=== PATIENT | female | born 1980 | race Caucasian/White ===

== ENCOUNTER 2021-06-12 15:32 | Emergency (ER) | payer SELFPAY ==
[~2021-06-12] VITALS: Ht 162.6 cm; Wt 64.4 kg
[2021-06-12 15:49] VITALS: BP 96/56
--- NOTE | 2021-06-12 15:51 | NUR ---
PT TAKEN TO ER BED 7.
--- NOTE | 2021-06-12 15:52 | NUR ---
PT AMBULATED FOR UA SAMPLE.
--- NOTE | 2021-06-12 15:54 | NUR ---
DR. MATTA AT PT BEDSIDE FOR FURTHER EVALUATION.
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
--- NOTE | 2021-06-12 16:11 | NUR ---
SUPERVISOR [employer] AT PT BEDSIDE.
--- NOTE | 2021-06-12 16:14 | NUR ---
[employer] MEMBER AT PT BEDSIDE.
[2021-06-12 16:25] LABS: BASOPHILS # (AUTO) 0.1 K/uL (0.00-0.22); BASOPHILS % (AUTO) 1.1 % (0.0-2.0); EOSINOPHILS # (AUTO) 0.1 K/uL (0-0.4); EOSINOPHILS % (AUTO) 2.6 % (0.0-4.0); HEMATOCRIT 37.3 % (36-48); HEMOGLOBIN 12.3 g/dL (12.0-16.0); LYMPHOCYTES # (AUTO) 2.1 K/uL (2.5-16.5); LYMPHOCYTES % (AUTO) 44.6 % (20.5-51.1); MEAN CORPUSCULAR HEMOGLOBIN 30 pg (27-31); MEAN CORPUSCULAR HGB CONC 33 g/dL (33-37); MEAN CORPUSCULAR VOLUME 92.2 fL (80-94); MONOCYTES # (AUTO) 0.2 K/uL (0.8-1.0); MONOCYTES % (AUTO) 4.6 % (1.7-9.3); NEUTROPHILS # (AUTO) 2.2 K/uL (1.8-7.7); NEUTROPHILS % (AUTO) 47.1 % (42.2-75.2); PLATELET COUNT (AUTO) 352 K/uL (140-450); RED BLOOD CELL COUNT(AUTO) 4.05 MIL/uL (4.20-5.40); RED CELL DISTRIBUTION WIDTH 13.8 % (11.6-13.7); WHITE BLOOD COUNT (AUTO) 4.7 K/uL (4.8-10.8)
[2021-06-12 16:44] LABS: ALBUMIN 3.4 g/dL (3.4-5.0); ANION GAP 14.8 (8-16); CARBON DIOXIDE 25.6 mmol/L (21-32); CREATININE 0.7 mg/dL (0.6-1.3); POTASSIUM 3.4 mmol/L (3.5-5.1); TOTAL BILIRUBIN 0.2 mg/dL (0.0-1.0)
--- NOTE | 2021-06-12 17:17 | NUR ---
PT RESTING VISIBLE EQUAL RISE AND FALL CHEST, WILL CONTINUE TO MONITOR.
--- NOTE | 2021-06-12 17:30 | NUR ---
PT ROAD TESTED, DENIES DIZZINESS, MADE AWARE.
[2021-06-12 17:44] VITALS: BP 107/63
--- NOTE | 2021-06-12 17:46 | NUR ---
Patient discharged with v/s stable. Written and verbal after care instructions given ALCOHOL INTOXICATION and explained. Patient verbalized understanding. Ambulatory with steady gait. All questions addressed prior to discharge. Advised to follow up with PMD.
== END 2021-06-12 17:44 | disposition home or self-care (01) ==
LOC: MED 15:32
DX: F10.129 Alcohol abuse with intoxication, unspecified (principal); R07.9 Chest pain, unspecified; Y90.8 Blood alcohol level of 240 mg/100 ml or more
CPT/HCPCS: 36415; 71045; 80053; 81002; 81025; 84484; 84703; 85025; 93005; 99285; G0482; 99284; Q0092

== ENCOUNTER 2022-01-11 03:08 | Emergency (ER) | payer MEDICAID ==
[~2022-01-11] VITALS: Ht 165.1 cm; Wt 68.9 kg
[2022-01-11 03:09] VITALS: BP 115/66
--- NOTE | 2022-01-11 03:16 | NUR ---
pt to bed 5
[2022-01-11 03:38] LABS: BASOPHILS # (AUTO) 0.1 K/uL (0.00-0.22); BASOPHILS % (AUTO) 1.2 % (0.0-2.0); EOSINOPHILS # (AUTO) 0.2 K/uL (0-0.4); EOSINOPHILS % (AUTO) 3.8 % (0.0-4.0); HEMATOCRIT 35.8 % (36-48); HEMOGLOBIN 12.3 g/dL (12.0-16.0); LYMPHOCYTES # (AUTO) 2.7 K/uL (2.5-16.5); LYMPHOCYTES % (AUTO) 56.3 % (20.5-51.1); MEAN CORPUSCULAR HEMOGLOBIN 31 pg (27-31); MEAN CORPUSCULAR HGB CONC 34 g/dL (33-37); MEAN CORPUSCULAR VOLUME 90.9 fL (80-94); MONOCYTES # (AUTO) 0.3 K/uL (0.8-1.0); MONOCYTES % (AUTO) 6.5 % (1.7-9.3); NEUTROPHILS # (AUTO) 1.6 K/uL (1.8-7.7); NEUTROPHILS % (AUTO) 32.2 % (42.2-75.2); PLATELET COUNT (AUTO) 329 K/uL (140-450); RED BLOOD CELL COUNT(AUTO) 3.94 MIL/uL (4.20-5.40); RED CELL DISTRIBUTION WIDTH 13.9 % (11.6-13.7); WHITE BLOOD COUNT (AUTO) 4.8 K/uL (4.8-10.8)
[2022-01-11 03:53] LABS: ALBUMIN 3.6 g/dL (3.4-5.0); ASPARTATE AMINOTRANSFERASE 21 U/L (15-37); CARBON DIOXIDE 26.7 mmol/L (21-32); CHLORIDE 104 mmol/L (98-107); CREATININE 0.6 mg/dL (0.6-1.3); GFR ARICAN-AMERICAN 142 mL/min (>90); GLUCOSE 104 mg/dL (74-106); POTASSIUM 3.7 mmol/L (3.5-5.1); SODIUM SERUM 140 mmol/L (136-145); UREA NITROGEN, BLOOD 6 mg/dL (7-18)
[2022-01-11 03:55] LABS: SALICYLATE < 2.8 mg/dL (2.8-20.0)
[2022-01-11 03:56] LABS: ACETAMINOPHEN < 0.5 ug/ml (10-30)
--- NOTE | 2022-01-11 03:57 | NUR ---
Pt states she wants to go home. Pt states she said she wanted to kill herself because she was depressed and drunk. Pt states she is no longer suicidal and would like to go home to her boyfriend. Dr. Mars at bedside, reevaluating patient.
[2022-01-11 04:00] VITALS: BP 109/69
--- NOTE | 2022-01-11 04:15 | NUR ---
Noted pt's IV was removed w/ cannula tip intact. Pt states she removed it on her own.
[2022-01-11 04:22] LABS: BARBITURATE, URINE NEGATIVE ng/ml (NEG <=200); BENZODIAZEPINE, URINE NEGATIVE ng/mL (NEG <=200); CANNABINOID, URINE NEGATIVE ng/mL (NEG <=50); COCAINE, URINE NEGATIVE ng/mL (NEG <=300); OPIATE, URINE NEGATIVE ng/mL (NEG <=2000); PHENCYCLIDINE SCREEN,URINE NEGATIVE ng/mL (NEG <=25)
--- NOTE | 2022-01-11 04:27 | NUR ---
Spoke with about pt being on 5150 but per MD patient evaluation, MD deems patient is medically cleared and is just stressed and drunk; patient will be discharge as long as patient is sent home by someone the patient knows.
--- NOTE | 2022-01-11 04:46 | NUR ---
Patient discharged by ER MD. Written and verbal after care instructions given and explained to parent/guardian by ERMD. ID band removed.
--- NOTE | 2022-01-11 04:46 | NUR ---
Patient discharged with v/s stable. Written and verbal after care instructions given and explained by Dr. Mars. Patient alert, oriented and verbalized understanding of instructions. Ambulatory with steady gait. All questions addressed prior to discharge. ID band removed. Patient advised to follow up with PMD. No Rx order. Opportunity to ask questions provided and answered.
--- NOTE | 2022-01-11 04:46 | NUR ---
Pt dressed in own clothes and walked to nursing station, states her boyfriend is outside to pick her up. Dr. Mars reviewed DC plans and completed DC paperwork. Pt ambulated via steady and balanced gait.
== END 2022-01-11 04:46 | disposition home or self-care (01) ==
LOC: MED 03:08
DX: F10.129 Alcohol abuse with intoxication, unspecified (principal); R45.851 Suicidal ideations; F43.0 Acute stress reaction; F32.9 Major depressive disorder, single episode, unspecified; Y90.9 Presence of alcohol in blood, level not specified; Z20.822 Contact with and (suspected) exposure to COVID-19
CPT/HCPCS: 36415; 80053; 80305; 85025; 87426; 93005; 99285; G0480; G0482; U0003